=== PATIENT | male | born 1995 | race Caucasian/White ===

== ENCOUNTER 2017-10-10 17:22 | Emergency (ER) | payer SELFPAY ==
[~2017-10-10] VITALS: Ht 152.4 cm; Wt 88.5 kg
[2017-10-10 17:44] VITALS: Ht 152.4 cm; Wt 88.5 kg
[2017-10-10 22:40] VITALS: BP 132/68
== END 2017-10-10 22:40 | disposition home or self-care (01) ==
LOC: ED 17:22
DX: S09.90XA Unspecified injury of head, initial encounter (principal); Y04.0XXA Assault by unarmed brawl or fight, initial encounter; Y93.89 Activity, other specified; Y92.89 Other specified places as the place of occurrence of the external cause; Y99.8 Other external cause status